=== PATIENT | male | born 1980 | race Two or more races ===

== ENCOUNTER 2020-09-14 07:58 | Emergency (ER) | payer MEDICAID ==
[~2020-09-14] VITALS: Ht 162.6 cm; Wt 57.0 kg
[2020-09-14 09:10] LABS: CLARITY URINE CLEAR (CLEAR); COLOR URINE YELLOW (YELLOW); KETONES URINE NEGATIVE (NEGATIVE); LEUKOCYTE ESTERASE URINE NEGATIVE (NEGATIVE); NITRITE URINE NEGATIVE (NEGATIVE); OCCULT BLOOD URINE NEGATIVE (NEGATIVE); PH URINE 6.5 (4.5-8.0); PROTEIN URINE TRACE (NEGATIVE); SPECIFIC GRAVITY URINE 1.026 (1.005-1.030)
[2020-09-14 10:01] VITALS: BP 121/70
== END 2020-09-14 10:02 | disposition home or self-care (01) ==
LOC: ER 07:58
DX: R59.0 Localized enlarged lymph nodes (principal)
CPT/HCPCS: 76857; 81003; 99284

== ENCOUNTER 2022-08-05 16:50 | Emergency (ER) | payer BC, MEDICAID ==
[~2022-08-05] VITALS: Ht 175.3 cm; Wt 60.0 kg
[2022-08-05 17:05] VITALS: BP 116/65
== END 2022-08-05 18:58 | disposition left against medical advice (07) ==
LOC: ER 16:50
DX: Z53.21 Procedure and treatment not carried out due to patient leaving prior to being seen by health care provider (principal)